=== PATIENT | female | born 1950 | race Caucasian/White ===

== ENCOUNTER 2016-12-16 10:09 | Outpatient (RCR) | payer MEDICARE, MEDICAID | END 2016-12-21 15:15 | LOC: OPPGERO 10:09 | DX: F33.1 Major depressive disorder, recurrent, moderate (principal); F41.1 Generalized anxiety disorder ==

== ENCOUNTER 2016-12-22 09:00 | Outpatient (RCR) | payer MEDICARE, MEDICAID | END 2017-01-21 14:35 | LOC: OPPGERO 09:00 | DX: F33.1 Major depressive disorder, recurrent, moderate (principal); F41.1 Generalized anxiety disorder ==

== ENCOUNTER 2017-01-22 08:24 | Outpatient (RCR) | payer MEDICARE, MEDICAID | END 2017-02-19 15:19 | LOC: OPPGERO 08:24 | DX: F33.1 Major depressive disorder, recurrent, moderate (principal); F41.1 Generalized anxiety disorder ==